=== PATIENT | female | born 1960 | race Caucasian/White ===

== ENCOUNTER 2018-04-25 16:07 | Emergency (ER) | payer BC, OTHER ==
[2018-04-25] MEDS ORDERED: IPRATROPIUM/ALBUTEROL 3 ML DEYVIAL IH ONE (16:24)
[2018-04-25] MEDS ORDERED: predniSONE 20 MG TAB PO ONE (16:24)
--- NOTE | 2018-04-25 16:44 | EDPHY ---
H & P Time Seen by Provider: 04/25/18 16:25 HPI/ROS: HPI Asthma exacerbation, bronchitis. 57-year-old female with a history of reactive airway disease. She comes by private vehicle with her daughter. She is from [place]. She reports that she had some carpet taken out of her house on Thursday and . She reports that she also had some Tonja nut in her coffee on Thursday and she has an allergy to Tonja nut. She reports that since Thursday she has had wheezing and a cough productive of green yellowish sputum. She reports that she used her nebulizer several times today at home but without significant relief. She has not had a fever. ROS: Constitutional: No fever, no chills. No weakness. Eyes: No discharge. No changes in vision. ENT: No sore throat. No nasal congestion or rhinorrhea. Respiratory: As above. Cardiac: No chest pain, no palpitations. Gastrointestinal: No abdominal pain, no vomiting, no diarrhea. Genitourinary: No hematuria. No dysuria or increased frequency with urination. Musculoskeletal: No back pain. No neck pain. No myalgias or arthralgias. Skin: No rashes. Neurological: No headache. No focal weakness or altered sensation. Past medical history: Reactive airway disease. Social history: Nonsmoker. No alcohol. Here with her daughter. Physical Exam: General Appearance: Alert, no distress. Intermittent dry hacking cough. This patient is responding to questions appropriately and in full sentences. This patient appears well-hydrated and well-nourished. Eyes: Pupils equal and round no pallor or injection. No lid edema, erythema or injection. Respiratory: There are no retractions, she has some scant wheezing in the mid and upper lung hall with intermittent cough. She has good air movement overall bilaterally. No tachypnea. Cardiovascular: Regular rate and rhythm. No murmur. Neurological: Motor sensory function is grossly intact. Cranial nerves are normal. Gait is normal. Skin: Warm and dry, no rashes. Musculoskeletal: Neck is supple and nontender. Extremities are symmetrical. All joints range without pain or impingement. Psychiatric: No agitation. No depression. Database: EKG: Imaging: Chest x-ray PA and lateral; the cardiac mediastinal silhouette is unremarkable. Subsegmental right middle lobe atelectasis. No evidence of pneumothorax. No acute cardiopulmonary disease process noted. Interpreted by me. I have also read the report offered by the radiologist. Pneumonia unlikely. Procedures: Emergency department course: Triage vital signs reviewed. She is moderately hypertensive. Vital signs otherwise normal. She was started on albuterol/Atrovent nebulizer treatments, 3 to be given [id number] and she was given oral prednisone and Tessalon joel. 6:20 p.m., patient re-evaluated, feeling much better at this time. Results of her chest x-ray were discussed with her and her daughter. I discussed the chest x-ray finding of probable right middle lobe atelectasis. However, I also explained that this may represent an early pneumonia. That said, I will prescribe her doxycycline. Repeat pulmonary exam, she has not been coughing, she has good air movement bilaterally with no wheezing and no tachypnea. She does feel comfortable going home. She does have nebulized albuterol at home as well as an albuterol MDI. I will prescribe a short course of steroids and Tessalon Perles for cough. Follow-up and return to emergency department precautions discussed with her. All of her questions were answered. She was discharged from the emergency department in good condition with her daughter. Differential Diagnosis: The differential diagnosis on this patient includes but is not limited to bronchitis, reactive airway disease, early pneumonia. Congestive heart failure , anaphylaxis unlikely. This represents a partial list of diagnoses considered. These considerations are based on history, physical exam, past history, reassessment and diagnostic testing. Smoking Status: Never smoked Constitutional: Initial Vital Signs Temperature (C) 36.7 C 04/25/18 16:25 Heart Rate 83 04/25/18 16:25 Respiratory Rate 16 04/25/18 16:25 Blood Pressure 151/79 H 04/25/18 16:25 O2 Sat (%) 96 04/25/18 16:25 O2 Delivery Mode Room Air Allergies/Adverse Reactions: Corticosteroids (Glucocorticoids) Allergy (Verified 04/25/18 16:44) lidocaine Allergy (Verified 04/25/18 16:44) tetracaine Allergy (Verified 04/25/18 16:44) Home Medications: Medication Instructions Recorded Albuterol 04/25/18 Aspirin 04/25/18 Benzonatate [Tessalon Pearles] 100 mg PO TID #12 cap 04/25/18 Doxycycline Hyclate [Vibramycin 100 mg PO BID #20 cap 04/25/18 100 MG (*)] Flonase Nasal Coram 04/25/18 Singulair 04/25/18 ZYRTEC 04/25/18 predniSONE [prednisone 20mg (RX)] 60 mg PO DAILY #12 tab 04/25/18 Medical Decision Making - Diagnostics Imaging Results: Imaging Impressions Chest X-Ray 04/25/18 16:35 Impression: Subsegmental right middle lobe atelectasis, likely related to mucous plugging. - Data Points Medications Given: Discontinued Medications Albuterol/Ipratropium (Duoneb) 9 ml IH EDNOW ONE Stop: 04/25/18 16:25 Last Admin: 04/25/18 16:49 Dose: 9 ml Prednisone (Prednisone) 80 mg PO EDNOW ONE Stop: 04/25/18 16:25 Last Admin: 04/25/18 16:49 Dose: 80 mg Departure - Departure Disposition: Home, Routine, Self-Care Clinical Impression: Asthma exacerbation, Bronchitis Condition: Good Instructions: Asthma (ED), Acute Bronchitis (ED) Additional Instructions: Read and follow provided instructions. Follow-up with your primary care physician in 1-2 days for re-evaluation. Take medication as prescribed. You should use your nebulized albuterol or meter dose inhaler every 2-4 hours as needed for wheezing, cough and shortness of breath. Return to the emergency department for worsening symptoms, worsening cough, difficulty breathing, fever or other serious concerns. Referrals: NONE *PRIMARY CARE P,. [Primary Care Provider] - As per Instructions Prescriptions: Benzonatate [Tessalon Pearles] 100 mg PO TID #12 cap Doxycycline Hyclate [Vibramycin 100 MG (*)] 100 mg PO BID #20 cap predniSONE [prednisone 20mg (RX)] 60 mg PO DAILY #12 tab
[2018-04-25] MEDS ORDERED: DOXYCYCLINE HYCLATE 100 MG CAP/TAB PO ONE (18:34)
[2018-04-25 18:38] VITALS: BP 154/75
== END 2018-04-25 18:38 | disposition home or self-care (01) ==
LOC: CED 16:07
DX: J45.901 Unspecified asthma with (acute) exacerbation (principal)
CPT/HCPCS: 71046-PO; J7512